=== PATIENT | female | born 1995 ===

== ENCOUNTER 2022-04-10 04:08 | Inpatient (IN) | payer OTHER ==
[2022-04-10] MEDS ORDERED: Water For Irrigation,Sterile 1,000 ML Container IRR PRN (05:33)
[2022-04-10] MEDS ORDERED: Butorphanol 1 MG/ML SDV IVPUSH PRN (05:33)
[2022-04-10] MEDS ORDERED: Tranexamic Acid 1,000 MG in Sodium Chloride 0.9% 100 ML IV PRN (05:33)
[2022-04-10] MEDS ORDERED: Sodium Chloride 0.9% 20 ML SDV IV PRN (05:33)
[2022-04-10] MEDS ORDERED: Methylergonovine 0.2 MG/1 ML Amp IM PRN ×2 (05:33→22:22)
[2022-04-10] MEDS ORDERED: Carboprost Tromethamine 250 MCG/1 ML Amp IM PRN (05:33)
[2022-04-10] MEDS ORDERED: Sodium Chloride 0.9% 10 ML Syringe FLUSH PRN (05:33)
[2022-04-10] MEDS ORDERED: Lidocaine 1% 50 ML MDV INJECT PRN (05:33)
[2022-04-10] MEDS ORDERED: Misoprostol 200 MCG Tab PO PRN (05:33)
[2022-04-10] MEDS ORDERED: Sodium Chloride 0.9% 2.5 ML Syringe FLUSH PRN (05:33)
[2022-04-10] MEDS ORDERED: Oxytocin/0.9 % Sodium Chloride 30 UNIT/500 ML BAG IV SCH ×2 (05:45→22:30)
[2022-04-10] MEDS: Lactated Ringers 1,000 ML IV SCH ×2 (08:06→10:15)
[2022-04-10] MEDS ORDERED: Lidocaine 2% with EPINEPHrine 1:200,000 20 ML SDV ONE (09:48)
[2022-04-10] MEDS ORDERED: Phenylephrine HCl In 0.9% NaCl 1 MG/10 ML Vial ONE (09:50)
[2022-04-10] MEDS ORDERED: Ropivacaine/PF 400 MG/200 ML PCA ONE (09:50)
[2022-04-10] MEDS ORDERED: ePHEDrine 50 MG/ML SDV IVPUSH PRN ×3 (10:03→15:59)
[2022-04-10] MEDS ORDERED: Phenylephrine HCl In 0.9% NaCl 1 MG/10 ML Vial IVPUSH SCH ×2 (10:15→16:00)
[2022-04-10] MEDS ORDERED: Ropivacaine HCl/PF 400 MG in Premix Bag 1 BAG EPIDUR SCH (10:15)
[2022-04-10] MEDS ORDERED: Morphine PF 10 MG/10 ML SDV ONE (15:45)
[2022-04-10] MEDS ORDERED: Dexamethasone 4 MG/ML 5 ML MDV ONE (15:46)
[2022-04-10] MEDS ORDERED: ceFAZolin 1 GM Vial ONE (15:46)
[2022-04-10] MEDS ORDERED: Oxytocin 10 Units/1 ML SDV ONE ×3 (15:49→16:25)
[2022-04-10] MEDS ORDERED: diphenhydrAMINE 50 MG/ML SDV IVPUSH PRN ×2 (15:59→22:22)
[2022-04-10] MEDS ORDERED: Ondansetron 4 MG/2 ML SDV IVPUSH PRN ×3 (15:59→22:22)
[2022-04-10] MEDS ORDERED: Metoclopramide 10 MG/2 ML SDV IVPUSH PRN (15:59)
[2022-04-10] MEDS ORDERED: fentaNYL 50 MCG/ML SDV IVPUSH PRN (15:59)
[2022-04-10] MEDS ORDERED: Acetaminophen/oxyCODONE 325-5 MG Tab PO PRN (15:59)
[2022-04-10] MEDS ORDERED: Naloxone 0.4 MG/ML SDV IVPUSH PRN (15:59)
[2022-04-10] MEDS ORDERED: HYDROmorphone 1 MG/ML Syringe IVPUSH PRN (15:59)
[2022-04-10] MEDS ORDERED: Morphine 4 MG/ML VIAL IVPUSH PRN (15:59)
[2022-04-10] MEDS ORDERED: Albuterol 0.083% 2.5 MG/3 ML Neb Soln NEB PRN (15:59)
[2022-04-10] MEDS ORDERED: fentaNYL 100 MCG/2 ML SDV IVPUSH PRN (15:59)
[2022-04-10] MEDS ORDERED: Glycopyrrolate 0.2 MG/ML SDV ONE (16:08)
[2022-04-10] MEDS ORDERED: Nitroglycerin/D5W 25 MG/250 ML BOTTLE ONE (16:11)
[2022-04-10] MEDS ORDERED: Tranexamic Acid 1,000 MG/10 ML Vial ONE ×2 (16:18→16:25)
[2022-04-10] MEDS ORDERED: Octyl 2-Cyanoacrylate 1 g/1 mL 1 APPLIC PEN ONE (16:36)
[2022-04-10] MEDS ORDERED: cefOXitin 1 GM Vial ONE ×2 (16:51)
[2022-04-10] MEDS ORDERED: Lidocaine 2% 100 MG/5 ML Syringe ONE (17:18)
[2022-04-10] MEDS ORDERED: Midazolam 1 MG/ML 2 ML SDV ONE ×2 (17:33→18:36)
[2022-04-10] MEDS ORDERED: fentaNYL 100 MCG/2 ML SDV ONE (17:33)
[2022-04-10] MEDS ORDERED: Bupivacaine 0.5% 10 ML SDV ONE ×2 (17:59→19:25)
[2022-04-10] MEDS ORDERED: Fluorescein 5 ML Vial ONE (18:44)
[2022-04-10] MEDS ORDERED: Methylene Blue 50 MG/10 ML Ampule ONE (18:44)
[2022-04-10] MEDS ORDERED: Lidocaine 2% 5 ML SDV ONE (18:58)
[2022-04-10] MEDS ORDERED: Phenylephrine 1% 10 MG/ML SDV ONE (18:58)
[2022-04-10] MEDS ORDERED: Acetaminophen 1,000 MG in Premix Bag 1 BAG IV ONE (22:07)
[2022-04-10] MEDS ORDERED: Lanolin 100% Cream 7 GM Tube TOP PRN (22:22)
[2022-04-10] MEDS ORDERED: oxyCODONE 5 MG Tab PO PRN (22:22)
[2022-04-10] MEDS ORDERED: Bisacodyl 10 MG Supp RECTAL PRN (22:22)
[2022-04-10] MEDS ORDERED: Misoprostol 200 MCG Tab RECTAL PRN (22:22)
[2022-04-10] MEDS ORDERED: Oxytocin 10 Units/1 ML SDV IM PRN (22:22)
[2022-04-10] MEDS ORDERED: Acetaminophen 500 MG Tab PO SCH (22:30)
[2022-04-11] MEDS ORDERED: cefOXitin 2 GM in Sodium Chloride 0.9% 50 ML IV SCH (00:29)
[2022-04-11] MEDS: Simethicone 80 MG Tab.Chew PO SCH ×3 (01:17→23:45)
[2022-04-11] MEDS: Nitrofurantoin Monohydrate/Macrocrystalline 100 MG Cap PO SCH ×3 (01:18→21:11)
[2022-04-11] MEDS: Lactated Ringers 1,000 ML IV SCH ×2 (01:34→09:43)
[2022-04-11] MEDS: Ketorolac 30 MG/ML SDV IVPUSH SCH ×3 (01:35→20:28)
[2022-04-11] MEDS ORDERED: Iopamidol 755 MG/ML 500 ML Multipack Bottle IVPUSH ONE (05:49)
[2022-04-11] MEDS ORDERED: Acetaminophen 1,000 MG in Premix Bag 1 BAG IV PRN (07:31)
[2022-04-11] MEDS: Acetaminophen 1,000 MG in Premix Bag 1 BAG IV SCH ×2 (08:46→23:07)
[2022-04-11] MEDS: Docusate Sodium 100 MG Cap PO SCH ×2 (12:59→21:11)
[2022-04-12] MEDS: Lactated Ringers 1,000 ML IV SCH (01:31)
[2022-04-12] MEDS: Ketorolac 30 MG/ML SDV IVPUSH SCH (02:12)
[2022-04-12] MEDS: Acetaminophen 1,000 MG in Premix Bag 1 BAG IV SCH (04:36)
[2022-04-12] MEDS: Simethicone 80 MG Tab.Chew PO SCH ×3 (06:12→14:58)
[2022-04-12] MEDS: Ketorolac 10 MG Tab PO SCH ×3 (08:25→20:15)
[2022-04-12] MEDS: Nitrofurantoin Monohydrate/Macrocrystalline 100 MG Cap PO SCH ×2 (09:00→20:46)
[2022-04-12] MEDS: Docusate Sodium 100 MG Cap PO SCH ×2 (09:00→20:45)
[2022-04-12] MEDS: Acetaminophen 500 MG Tab PO PRN (11:37)
[2022-04-13] MEDS: Acetaminophen 500 MG Tab PO PRN (00:07)
[2022-04-13] MEDS: Simethicone 80 MG Tab.Chew PO SCH ×2 (00:08→05:50)
[2022-04-13] MEDS: Ketorolac 10 MG Tab PO SCH ×2 (02:06→07:58)
[2022-04-13] MEDS: Nitrofurantoin Monohydrate/Macrocrystalline 100 MG Cap PO SCH (07:59)
[2022-04-13] MEDS: Docusate Sodium 100 MG Cap PO SCH (08:00)
== END 2022-04-13 12:53 | disposition home or self-care (01) | DRG 788 ==
LOC: MW.OBCHECK 04:08 → MW.OB 04:09 → MW.OBCHECK 16:15 → MW.OB 16:15 → OBSVTOIN 16:17 → MW.OB 04-11 00:03
PROVIDERS: ADMIT Obstetrics & Gynecology; ATTEND Obstetrics & Gynecology
PROC: 10D00Z1 Extraction of Products of Conception, Low, Open Approach (ICD-10-PCS; principal; 2022-04-10)
PROC: 0TQB0ZZ Repair Bladder, Open Approach (ICD-10-PCS; 2022-04-10)
PROC: 0KQM0ZZ Repair Perineum Muscle, Open Approach (ICD-10-PCS; 2022-04-10)
DX: O62.2 Other uterine inertia (principal); O32.9XX0 Maternal care for malpresentation of fetus, unspecified, not applicable or unspecified; Z20.822 Contact with and (suspected) exposure to COVID-19; Z3A.38 38 weeks gestation of pregnancy; Z37.0 Single live birth
CPT/HCPCS: 01967; 01968; 36415; 51702; 59025; 74177; 74177-26; 82803; 84112; 85027; 86592; 86850; 86900; 86901; A9270-GY; J0131; J0595; J0690; J0694; J1100; J1790; J1885; J2250; J2274; J2370; J2590; J2795; J3010; J3490; J7120; Q9967; U0002